=== PATIENT | male | born 1975 ===

== ENCOUNTER 2016-11-13 21:41 | Emergency (ER) | payer SELFPAY ==
[2016-11-13 21:44] VITALS: BMI 33.5
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
[2016-11-13 22:31] VITALS: BP 128/80; PULSE 98; RESP 18; TEMP 98; O2SAT 99
== END 2016-11-13 22:44 | disposition home or self-care (01) ==
LOC: H.ER 21:41
DX: F16.10 Hallucinogen abuse, uncomplicated (principal)

== ENCOUNTER 2017-01-06 10:53 | Emergency (ER) | payer MEDICAID ==
[2017-01-06 10:58] VITALS: BMI 31.0
[2017-01-06 11:00] VITALS: BP 130/80; RESP 18; TEMP 99.2; O2SAT 99
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
[2017-01-06 13:49] VITALS: PULSE 94
== END 2017-01-06 13:49 | disposition home or self-care (01) ==
LOC: H.ER 10:53
DX: S02.2XXA Fracture of nasal bones, initial encounter for closed fracture (principal); Y04.2XXA Assault by strike against or bumped into by another person, initial encounter